=== PATIENT | male | born 1940 | race Caucasian/White ===

== ENCOUNTER → 2020-01-05 | Outpatient (CLI) | payer MEDICARE | END | disposition home or self-care (01) | LOC: SHCH 08:26 | PROVIDERS: ATTEND Internal Medicine Cardiovascular Disease | DX: I34.0 Nonrheumatic mitral (valve) insufficiency (principal); I48.20 Chronic atrial fibrillation, unspecified | CPT/HCPCS: 93306; 93356 ==

== ENCOUNTER → 2022-01-23 | Outpatient (CLI) | payer MEDICARE | END | disposition home or self-care (01) | LOC: SLP 20:24 | PROVIDERS: ATTEND Internal Medicine | DX: G47.33 Obstructive sleep apnea (adult) (pediatric) (principal) | CPT/HCPCS: 95810 ==

== ENCOUNTER → 2022-02-08 | Outpatient (CLI) | payer MEDICARE | END | disposition home or self-care (01) | LOC: SLP 02-07 20:30 | PROVIDERS: ATTEND Internal Medicine | DX: G47.33 Obstructive sleep apnea (adult) (pediatric) (principal) | CPT/HCPCS: 95811 ==

== ENCOUNTER → 2022-10-15 | Outpatient (CLI) | payer MEDICARE ==
[2022-10-15 16:22] LABS: CREATININE 1.3 mg/dL (0.5-1.5)
== END | disposition home or self-care (01) ==
LOC: LAB 13:02
PROVIDERS: ATTEND Internal Medicine Cardiovascular Disease
DX: I25.2 Old myocardial infarction (principal)
CPT/HCPCS: 36415; 80048

== ENCOUNTER → 2023-04-24 | Outpatient (CLI) | payer MEDICARE ==
[2023-04-24 16:35] LABS: CHOLESTEROL 201 mg/dL (<200); HDL CHOLESTEROL 39 mg/dL (29-71); LDL DIRECT 130 mg/dL (0-99); TRIGLYCERIDES 151 mg/dL (30-200)
== END | disposition home or self-care (01) ==
LOC: LAB 11:56
PROVIDERS: ATTEND Internal Medicine Cardiovascular Disease
DX: I48.19 Other persistent atrial fibrillation (principal); I25.2 Old myocardial infarction; E78.5 Hyperlipidemia, unspecified; J44.9 Chronic obstructive pulmonary disease, unspecified; Z87.891 Personal history of nicotine dependence; Z85.46 Personal history of malignant neoplasm of prostate; Z79.01 Long term (current) use of anticoagulants; Z79.899 Other long term (current) drug therapy
CPT/HCPCS: 36415; 80061; 84153; 84154

== ENCOUNTER → 2023-05-06 | Outpatient (CLI) | payer OTHER | END | disposition home or self-care (01) | LOC: RAH 13:39 | PROVIDERS: ATTEND Internal Medicine Cardiovascular Disease | DX: Z13.6 Encounter for screening for cardiovascular disorders (principal); E78.5 Hyperlipidemia, unspecified; R93.1 Abnormal findings on diagnostic imaging of heart and coronary circulation | CPT/HCPCS: 75571 ==

== ENCOUNTER → 2023-06-13 | Outpatient (CLI) | payer MEDICARE, OTHER ==
[~2023-06-13] MED LIST: REGADENOSON 0.4 MG/5 ML PF SYG IVP ONE
== END | disposition home or self-care (01) ==
LOC: SHCH 08:05
PROVIDERS: ATTEND Internal Medicine Cardiovascular Disease
DX: I48.91 Unspecified atrial fibrillation (principal); I25.10 Atherosclerotic heart disease of native coronary artery without angina pectoris
CPT/HCPCS: 78452; 96374; 93017; J2785; A9500 ×2

== ENCOUNTER → 2023-06-20 | Outpatient (CLI) | payer MEDICARE, OTHER | END | disposition home or self-care (01) | LOC: RAH 10:12 | PROVIDERS: ATTEND Internal Medicine Cardiovascular Disease | DX: I71.43 Infrarenal abdominal aortic aneurysm, without rupture (principal) | CPT/HCPCS: 76775 ==

== ENCOUNTER → 2023-06-30 | Outpatient (CLI) | payer MEDICARE, OTHER | END | disposition home or self-care (01) | LOC: RAH 13:33 | PROVIDERS: ATTEND Internal Medicine Cardiovascular Disease | DX: I51.7 Cardiomegaly (principal); I50.20 Unspecified systolic (congestive) heart failure | CPT/HCPCS: 93306 ==

== ENCOUNTER → 2023-07-10 | Outpatient (CLI) | payer MEDICARE, OTHER | END | disposition home or self-care (01) | LOC: LAB 11:11 | PROVIDERS: ATTEND Internal Medicine Cardiovascular Disease | DX: I25.2 Old myocardial infarction (principal) | CPT/HCPCS: 36415; 83880 ==

== ENCOUNTER → 2024-09-20 | Outpatient (CLI) | payer MEDICARE, OTHER ==
[~2024-09-20] MED LIST changes: +AMOX1TAB16 PO; +APIX5TAB PO; +LEVO-70 PO; +METR-172 PO; -REGADENOSON 0.4 MG/5 ML PF SYG IVP ONE
--- NOTE | 2024-09-20 13:31 | HMCSR ---
APPROVED REPORT EXAM: Two-dimensional and M-mode echocardiogram with Doppler and color Doppler. INDICATION ICD: R06.00 Dyspnea 2D Dimensions RVDd3.2 cmLVEF(%)17.5 (>50%)LVED Vol(simp.)208.0 mL IVSd0.8 (0.7-1.1cm)FS(%)8 %LVES Vol(simp.)167.0 mL LVDd6.5 (3.8-5.6cm)Ao Root(2D)3.2 (2.0-3.7cm)LVEF(%, simp.)20 % PWd0.9 (0.7-1.1cm)LVOT diam2.1 (1.8-2.4cm)LA ESV INDEX (BP)40.99 mL/m2 LVDs5.9 (2.5-4.0cm)IVC diam2.0 cm Aortic Valve AoV Vmax1.3 m/Gricel Peak GR6.6 mmHgLVOT Vmax0.8 m/s AoV VTI0.2 mAo Mean GR4.2 mmHgLVOT VTI0.13 m MIRA (VMAX)1.9 cm2Al P1/2T661 msAVA (VTI) 1.9 cm2 Mitral Valve MV E Vmax79.1 cm/sDECEL Ltui971 ms MR Max PG78 mmHgP 1/2 T44 ms MVA (PHT)5.0 cm2 Pulmonary Valve PV Vmax0.8 m/sPV VTI0.17 mPV Mean GR2 mmHg PV Peak GR2.6 mmHgPI End Renita. Curtis 1.4 cm/s Tricuspid Valve TR Vmax2.6 m/sRAP (EST) 8 lvZkXATA14.2 mmHg TR Peak GR26.2 mmHg Left Ventricle The left ventricle is severely dilated. Hypokinetic anterior and apical mcarthur. There is normal left v entricular wall thickness. LVEF is 15-20%. The LV diastolic function was unable to be assessed due to atrial arrhythmia. Right Ventricle The right ventricle is normal size. Right ventricular systolic function is mildly reduced. Atria The left atrium is mildly dilated. The right atrium is severely dilated. Aortic Valve Aortic valve is trileaflet. Aortic valve leaflets are sclerotic but open well. Mild aortic regurgitat ion. No hemodynamically significant valvular aortic stenosis.Calculated aortic valve area is 1.9 cm2 with maximum pressure gradient of 6.6 mmHg and mean pressure gradient of 4.2 mmHg. Mitral Valve Mitral valve leaflets are mildly sclerotic but open well. Mitral regurgitation is moderate. The aida l regurgitant jet is posteriorly directed, which is consistent with anterior leaflet pathology. There is no mitral valve stenosis. Tricuspid Valve The tricuspid valve leaflets appear normal. There is mild tricuspid regurgitation. Right ventricular systolic pressure is estimated at 30-40 mmHg. Pulmonic Valve The pulmonic valve is mildly slcerotic but open well. There is mild valvular regurgitation. Great Vessels The aortic root is normal in size. IVC is dilated and collapses >50% with inspiration. Pericardium No pericardial effusion. Conclusion The left ventricle is severely dilated. LVEF is 15-20%. Hypokinetic anterior and apical mcarthur. The left atrium is mildly dilated. Mild aortic regurgitation. Mitral regurgitation is moderate. The mitral regurgitant jet is posteriorly directed, which is consistent with anterior leaflet patholo gy. There is mild tricuspid regurgitation. Right ventricular systolic pressure is estimated at 30-40 mmHg. There is mild valvular regurgitation.
== END | disposition home or self-care (01) ==
LOC: SHCH 11:16
PROVIDERS: ATTEND Internal Medicine Cardiovascular Disease
DX: I08.8 Other rheumatic multiple valve diseases (principal); R06.00 Dyspnea, unspecified
CPT/HCPCS: 93306

== ENCOUNTER 2024-10-25 06:33 | Day surgery (SDC) | payer MEDICARE, OTHER ==
[2024-10-21 11:02] VITALS: BP 125/94; PULSE 75; RESP 15; TEMP 97.3
--- NOTE | 2024-10-21 11:18 | EKG ---
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
[2024-10-21 11:48] LABS: BASOPHILS # (AUTO) 0.03 K/uL (0.00-0.20); BASOPHILS % (AUTO) 0.5 % (0.0-5.0); EOSINOPHILS # (AUTO) 0.18 K/uL (0.00-0.70); HEMATOCRIT 39.5 % (42-54); IMMATURE GRANULOCYTE ABSOLUTE 0.02 K/uL (0-1); LYMPHOCYTES # (AUTO) 1.3 K/uL (1.0-4.8); LYMPHOCYTES % (AUTO) 21.5 % (21.0-51.0); MEAN CORPUSCULAR HEMOGLOBIN 46.7 pg (27.0-33.0); MEAN CORPUSCULAR HGB CONC 46.8 g/dL (32.0-36.0); MEAN CORPUSCULAR VOLUME 99.7 fL (79-99); MONOCYTES # (AUTO) 0.4 K/uL (0.1-1.0); MONOCYTES % (AUTO) 6.7 % (3.0-13.0); NEUTROPHILS # (AUTO) 4.1 K/uL (1.8-7.7); PLATELET COUNT (AUTO) 169 K/uL (130-400); RED BLOOD CELL COUNT(AUTO) 3.96 MIL/uL (4.50-6.20); RED CELL DISTRIBUTION WIDTH 14.7 % (11.0-15.5); WHITE BLOOD COUNT (AUTO) 6.1 K/uL (4.8-10.8)
[2024-10-21 11:50] LABS: CREATININE 1.3 mg/dL (0.5-1.3)
[2024-10-21 11:56] LABS: POTASSIUM 5.9 mmol/L (3.5-5.1)
[2024-10-21 11:58] LABS: INR 1.04 (0.85-1.15); PROTHROMBIN TIME 11.6 SEC (9.6-11.6)
[2024-10-21 11:59] LABS: APPEARANCE,URINE CLEAR (CLEAR); BILIRUBIN,URINE NEGATIVE (NEGATIVE); COLOR,URINE LIGHT-YELLOW (YELLOW); GLUCOSE, URINE (UA) NEGATIVE (NEGATIVE); KETONES,URINE NEGATIVE (NEGATIVE); LEUKOCYTE ESTERASE ,URINE NEGATIVE Leu/uL (NEGATIVE); NITRATE,URINE NEGATIVE (NEGATIVE); OCCULT BLOOD,URINE NEGATIVE (NEGATIVE); PROTEIN,URINE 100 mg/dL (NEGATIVE); UROBILINOGEN,URINE 0.2 mg/dL (0.2-1.0)
[2024-10-21 11:59] LABS: PARTIAL THROMBOPLASTIN TIME 28.3 SEC (26.3-35.5)
[2024-10-21 12:03] LABS: ADD UA MICROSCOPIC YES
--- NOTE | 2024-10-21 12:15 | HMCIMG ---
CHEST 1VW HISTORY: Preop COMPARISON: None FINDINGS: A frontal projection of the chest was obtained. No acute pulmonary infiltrates is seen. The heart is borderline enlarged. Prominent physician markings are seen. Tortuosity of aorta is seen. No evidence of aortic calcification is seen. IMPRESSION: 1. No acute pulmonary infiltrate is seen.
[2024-10-21 12:31] LABS: B-TYPE NATRIURETIC PEPTIDE 1450 pg/mL (0-100)
[2024-10-21 12:36] LABS: RBC,URINE 0-1 /HPF (0-1); WBC,URINE 0-1 /HPF (0-1)
--- NOTE | 2024-10-22 11:05 | NUR ---
RE: LABS REPORTED BMP/CBC RESULTS TO ROBERT ELIZONDO. RECEIVED ORDERS TO REDRAW POTASSIUM
[2024-10-25] VITALS (9 sets, daily range): BP systolic 112–144; BP diastolic 87–97; PULSE 95–150; RESP 9–19; TEMP 96.6–97.3
[~2024-10-25] VITALS: Ht 167.6 cm; Wt 90.5 kg
[~2024-10-25 06:33] MED LIST changes: +ALBU18HF7 IH; -AMOX1TAB16 PO; +FLUT1BLS3 IH; -LEVO-70 PO; +METO-408 PO; -METR-172 PO; +SACU1TAB PO
[2024-10-25] MEDS: 0.9%NACL 1000ML 1,000 ML IV SCH (07:28)
[2024-10-25] MEDS ORDERED: IOHEXOL 350 MG/ML 100ML INFUS..BTL IV ONE ×2 (09:22→10:48)
[2024-10-25] MEDS ORDERED: LIDOCAINE HCL 1% 20 ML VIAL ONE (09:22)
[2024-10-25] MEDS ORDERED: HEParin-NS 1,000 UNIT/500 ML 1,000 ML IV ONE (09:23)
[2024-10-25] MEDS ORDERED: NITROGLYCERIN 50MG VIAL ONE (09:23)
[2024-10-25] MEDS ORDERED: MIDAZOLAM HCL 1 MG/ML 2ML VIAL ONE (09:40)
[2024-10-25] MEDS ORDERED: FENTanyl CITRate PF 50 MCG/1 ML 2ML VIAL ONE (09:40)
[2024-10-25] MEDS ORDERED: HEParin 10,000 UNIT/10ML (1,000 UNIT/ML) VIAL ONE (10:15)
[2024-10-25] MEDS ORDERED: BIVALIRUDIN 250 MG/VIAL IV ONE (10:15)
[2024-10-25] MEDS ORDERED: HEParin-NS 1,000 UNIT/500 ML 500 ML IV ONE (10:32)
[2024-10-25] MEDS ORDERED: metoPROLOL tartRATE 1 MG/ML 5ML VIAL IV ONE (10:49)
--- NOTE | 2024-10-25 12:09 | PRN ---
Cath Procedure Report CATH PROCEDURE REPORT CARDIAC CATHETERIZATION REPORT Date of Service: Oct 25, 2024 This patient has a history of persistent atrial fibrillation. Previous Lexiscan Cardiolite stress test had shown fixed defects. He had a drop in ejection fraction from 45% to 10-15% and has now admitted for left heart catheterization. After informed consent he was prepped and draped in the usual fashion. He r eceived a total of 15 cc of 2% xylocaine in the right inguinal area. He also received 1 mg of Versed for conscious sedation. Later during the procedure he received an additional mg of Versed and 25 mcg of fentanyl for posterior neck pain during the procedure. A six Iraqi sheath was introduced into the right femoral artery using modified Seldinger technique. A Gokul four right six Iraqi diagnostic catheter was advanced over guidewire to the aortic root. Aorta was extremely tortuous. And all further catheter exchanges were done over an exchange wire. The right coronary artery was engaged into the [place] right coronary artery which was visualized in multiple planes. The catheter was removed over exchange wire and a Gokul four left six [place] diagnostic catheter was advanced over guidewire to the aortic root. Because of a very tortuous aorta and dilated root the catheter would not reach the left main coronary artery. This was replaced with a 4.5 Gokul four left six Iraqi diagnostic catheter and again could not reach the left main coronary artery. A six Iraqi multi purpose catheter was exchanged over wire and again was too short to reach the left main coronary artery. Finally a Gokul five six Iraqi diagnostic catheter was successfully engaged into the left main coronary artery in the left coronary system was visualized multiple planes. Findings: The right coronary artery is a right-dominant vessel free of obstruction gives rise to normal PDA and posterolateral branches. The left main coronary is free of obstruction. The left anterior descending artery is is a large vessel free of obstruction gives rise to normal diagonal branches. The circumflex artery is a nondominant vessel save obstruction. 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 That point it was recommended to proceed with a flow wire analysis of the lesion to d etermine whether or not it should be stented. Again we had difficulty despite multiple catheters trying to reach the left main with the guiding catheter. He had received 3000 units of heparin in preparation for the flow wire measurement. Again multiple catheters including a JL five guiding catheter multipurpose guiding catheter Amplatz left two guiding catheter OBL 4.5 catheter none of which would reach the origin of the left main in the left coronary ostium. A 45 cm sheath was replaced over guiding wire and again despite multiple catheters the ostium of the LAD could not be reached. ACT postprocedure was 266 and after a sheathogram and Angio-Seal closure device was applied. The procedure was well tolerated without complications. Summary: This patient has a very tortuous aorta and dilated root making it difficult to reach the left main coronary artery. We were able to do diagnostic films but when attempted to do a flow wire to determine whether or not to stent the obtuse marginal artery other guiding catheters available were long of to reach the left main coronary artery despite changing his short sheath for a 45 cm sheath. At this point his drop in ejection fraction is probably not explained by the obtuse marginal artery. It is possible that he is having AFib with poorly controlled rate or may have had a viral myocarditis. I will try to optimize medications over the next coming weeks and we will plan on a follow up echo in three months to see if ejection fraction improves. We will also look into whether or not the patient should have cardioversion or AFib ablation. He has had no angina and we will treat his obtuse marginal artery medically for the time being. If this becomes symptomatic in the future we will check with [facility] to see if they have longer catheter was available for intervention. Report dictated by PRATEEK Hansen MD, MD Oct 25, 2024 12:09
--- NOTE | 2024-10-25 15:00 | NUR ---
activity/urinary: ambulated to bathroom slow steady gait without complaining of dizziness. pt voided qs yellow color urine in toilet.
== END 2024-10-25 15:05 | disposition home or self-care (01) ==
LOC: DAH 06:33
PROVIDERS: ATTEND Internal Medicine Cardiovascular Disease
DX: R94.39 Abnormal result of other cardiovascular function study (principal); I25.10 Atherosclerotic heart disease of native coronary artery without angina pectoris; I50.22 Chronic systolic (congestive) heart failure; I25.2 Old myocardial infarction; I48.19 Other persistent atrial fibrillation; E78.5 Hyperlipidemia, unspecified; I71.40 Abdominal aortic aneurysm, without rupture, unspecified; I25.5 Ischemic cardiomyopathy; E66.9 Obesity, unspecified; J44.9 Chronic obstructive pulmonary disease, unspecified; G47.33 Obstructive sleep apnea (adult) (pediatric); Z79.01 Long term (current) use of anticoagulants; Z68.31 Body mass index [BMI] 31.0-31.9, adult; Z79.899 Other long term (current) drug therapy; Z87.891 Personal history of nicotine dependence
CPT/HCPCS: 80048; 83880; 85025; 85610; 85730; 81001; 36415 ×2; 71045; 93005; 93458; 84132; 85347; C1769 ×2; C1887 ×5; C1894; C1760; C1893; Q9965 ×3; J3010; J3490 ×2; J7030; J1644 ×3; J2250; Q9967 ×2; A4215; A4222; A4221; A4663; A4216; A4606; A4223 ×3; 99156; 99157; J0583

== ENCOUNTER → 2024-11-02 | Outpatient (CLI) | payer MEDICARE, OTHER ==
[~2024-11-02] MED LIST changes: -METO-408 PO
[2024-11-02 17:43] LABS: CREATININE 1.8 mg/dL (0.5-1.3); POTASSIUM 4.5 mmol/L (3.5-5.1); THYROID STIMULATING HORMONE 3.2 uIU/mL (0.36-3.74)
== END | disposition home or self-care (01) ==
LOC: LAB 12:56
PROVIDERS: ATTEND Nurse Practitioner Acute Care
DX: R00.0 Tachycardia, unspecified (principal)
CPT/HCPCS: 36415; 80048; 84443

== ENCOUNTER 2025-03-02 07:11 | Day surgery (SDC) | payer MEDICARE, OTHER ==
[2025-02-28 13:20] VITALS: BP 134/72; PULSE 54; RESP 13; TEMP 98.1
[2025-02-28 13:22] LABS: BASOPHILS # (AUTO) 0.03 K/uL (0.00-0.20); BASOPHILS % (AUTO) 0.4 % (0.0-5.0); EOSINOPHILS # (AUTO) 0.32 K/uL (0.00-0.70); EOSINOPHILS % (AUTO) 4.2 % (0.0-8.0); HEMATOCRIT 41.9 % (42-54); IMMATURE GRANULOCYTE ABSOLUTE 0.03 K/uL (0-1); LYMPHOCYTES # (AUTO) 1.5 K/uL (1.0-4.8); LYMPHOCYTES % (AUTO) 19.1 % (21.0-51.0); MEAN CORPUSCULAR HEMOGLOBIN 39.4 pg (27.0-33.0); MEAN CORPUSCULAR HGB CONC 39.9 g/dL (32.0-36.0); MEAN CORPUSCULAR VOLUME 98.8 fL (79-99); MONOCYTES # (AUTO) 0.7 K/uL (0.1-1.0); MONOCYTES % (AUTO) 8.8 % (3.0-13.0); NEUTROPHILS # (AUTO) 5.2 K/uL (1.8-7.7); NEUTROPHILS % (AUTO) 67.1 % (40.0-77.0); PLATELET COUNT (AUTO) 180 K/uL (130-400); RED BLOOD CELL COUNT(AUTO) 4.24 MIL/uL (4.50-6.20); RED CELL DISTRIBUTION WIDTH 14.6 % (11.0-15.5); WHITE BLOOD COUNT (AUTO) 7.7 K/uL (4.8-10.8)
[2025-02-28 13:31] LABS: CREATININE 1.9 mg/dL (0.5-1.3)
--- NOTE | 2025-03-01 09:20 | NUR ---
NOTIFIED DR MCCOY INFORMED PT STOPPED AMIODARONE FOR ABOUT 4 DAYS SINCE HE RAN OUT. PT DOES HAVE ONE REFILL BUT DID NOT KNOW TO FILL. RECEIVED ORDERS TO INFORM PT TO RESTART BUT INCREASE TO 400MG PO BID. PT VOICED UNDERSTANDING Addendum: 03/01/25 at 0924 by RL CASTILLO RN RN ABOVE REPORTED YESTERDAY
[~2025-03-02] VITALS: Ht 167.6 cm; Wt 91.2 kg
[~2025-03-02 07:11] MED LIST changes: -ALBU18HF7 IH; +AMIO200T73 PO; -FLUT1BLS3 IH; +FURO20TA4 PO; +METO-408 PO
[2025-03-02 07:30] VITALS: BP 134/77; PULSE 68; RESP 16; TEMP 97.4
--- NOTE | 2025-03-02 08:14 | EKG ---
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
[2025-03-02] MEDS: 0.9%NACL 1000ML 1,000 ML IV SCH (09:06)
[2025-03-02] MEDS ORDERED: proPOFol 10 MG/ML 20ML VIAL IV ONE (09:39)
--- NOTE | 2025-03-02 09:53 | NUR ---
PT SYNCHRONIZED CARDIOVERTED [address] MCCOY PT TOLERATED WELL NAD VSS WILL CONTINUE TO MONITOR PT.
--- NOTE | 2025-03-02 09:59 | NUR ---
PT AWAKE SPEAKING WITH STAFF PRASANNA ROBIN.
[2025-03-02 10:10] VITALS: BP 102/62; PULSE 43; RESP 15; TEMP 97.7
--- NOTE | 2025-03-02 10:19 | EKG ---
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
[2025-03-02 10:20] VITALS: BP 105/63; PULSE 43; RESP 15
[2025-03-02 10:30] VITALS: BP 104/57; PULSE 40; RESP 14
[2025-03-02 10:40] VITALS: BP 108/57; PULSE 41; RESP 15
[2025-03-02 10:50] VITALS: BP 101/48; PULSE 43; RESP 14
--- NOTE | 2025-03-02 11:00 | NUR ---
BOTH PT AND GIVEN VERBAL AND WRITTEN DISCHARGE INSTRUCTIONS. INSTRUCTIONS ABOUT CHANGES IN MEDICATIONS GIVEN WELL TOO. IV REMOVED SITE ASYMPTOMATIC. PT TAKEN OUT VIA WHEELCHAIR DRIVING
--- NOTE | 2025-03-15 15:23 | PRN ---
Procedure Note Date of procedure: 03/02/2025 Diagnosis: Persistent atrial fibrillation Procedure: Cardioversion Physician: Rolly Mccoy MD The patient was brought to the day patient area in a fasting state. Anesthesia was provided by the anesthesia service. Cardioversion was performed with a synchronized shock at 200 joules resulting in sinus rhythm. The patient tolerated the procedure well. Final diagnosis: Persistent atrial fibrillation, status post successful cardi oversion Disposition: The patient will be discharged later today and will follow up with me in the office in approximately two weeks. ROLLY MCCOY MD Mar 15, 2025 15:23
== END 2025-03-02 11:05 | disposition home or self-care (01) ==
LOC: DAH 07:11
PROVIDERS: ATTEND Internal Medicine Cardiovascular Disease
DX: I48.11 Longstanding persistent atrial fibrillation (principal); J44.9 Chronic obstructive pulmonary disease, unspecified; I25.2 Old myocardial infarction; E78.5 Hyperlipidemia, unspecified; G47.33 Obstructive sleep apnea (adult) (pediatric); I25.10 Atherosclerotic heart disease of native coronary artery without angina pectoris; Z98.890 Other specified postprocedural states; Z87.891 Personal history of nicotine dependence; Z79.01 Long term (current) use of anticoagulants; Z79.899 Other long term (current) drug therapy
CPT/HCPCS: 80048; 85025; 36415; 92960; 93005 ×2; J2704; A4620; A4215; A4222; A4221; A4663; A4216; A4606; A4223 ×3; J3490